=== PATIENT | male | born 1980 | race Caucasian/White ===

== ENCOUNTER 2020-03-06 03:42 | Emergency (ER) | payer SELFPAY ==
[2020-03-06 03:49] VITALS: BP 177/113; PULSE 75; RESP 16; TEMP 36.9; O2SAT 100; BMI 23.6
--- NOTE | 2020-03-06 03:57 | XRR_ITS ---
PROCEDURE INFORMATION: Exam: XR Left Wrist Exam date and time: 03/06/2020 4:26 AM Age: 39 years old Clinical indication: Pain; Wrist; Left TECHNIQUE: Imaging protocol: XR Left wrist. Views: 3 or more views. COMPARISON: No relevant prior studies available. FINDINGS: Bones/joints: No fracture or dislocation is seen. The joint spaces are preserved. An erosion is seen near the ulnar styloid. Soft tissues: Normal. XR/XR wrist LT min 3V* [id number] IMPRESSION: An erosion is seen near the ulnar styloid of uncertain etiology. Follow-up is suggested.
--- NOTE | 2020-03-06 03:57 | XRR_ITS ---
PROCEDURE INFORMATION: Exam: XR Left Hand Exam date and time: 03/06/2020 4:26 AM Age: 39 years old Clinical indication: Pain; Wrist; Left TECHNIQUE: Imaging protocol: XR Left hand. Views: 3 or more views. COMPARISON: No relevant prior studies available. FINDINGS: Bones/joints: An erosion is seen a near the ulnar styloid. Rest of the bones are unremarkable. The joint spaces are preserved. Negative for fracture. Soft tissues: Normal. XR/XR hand LT min 3V* 02800 IMPRESSION: An erosion is seen near the ulnar styloid. The etiology is not certain. Follow-up is suggested.
--- NOTE | 2020-03-06 04:39 | W.ED.EXTPRO ---
HPI - Extremity Problem General: Chief complaint: Extremity Problem,Nontraumatic Stated complaint: swollen left wrist Time Seen by Provider: 03/06/20 03:54 Source: patient Mode of arrival: ambulatory Limitations: no limitations History of Present Illness: HPI Narrative: Franco is a nice 39-year-old male who comes in complaining of left wrist pain. He states that pains been there for about 2 to 3 days. He does not specifically remember any injury. States the pain is chronic. It flares up from time to time. Patient thought he should have it checked out. Denies any fever, chills, nausea, vomiting or any other complaints. Review of Systems General: Reports: 10 or more systems reviewed and unremarkable except in HPI and below PFSH ED PFSH: Medical History (Updated 03/06/20 @ 05:55 by Rina Guajardo) No pertinent past medical history Physical Exam Extremity: NARRATIVE EXTREMITY EXAM: Left wrist without swelling or deformity. Neurovascular intact distal. Mild tenderness over the lateral aspect of the wrist. No other acute findings. Course Vital Signs: Vital signs: Vital Signs Temperature 98.4 F 03/06/20 03:49 Pulse Rate 67 03/06/20 05:33 Respiratory Rate 16 03/06/20 05:33 Blood Pressure 119/78 03/06/20 05:33 Pulse Oximetry 98 03/06/20 05:33 MDM - Extremity (Nontraumatic) MDM Narrative: Medical decision making narrative: Patient's x-rays are symmetrical. See no sign of infection. Patient has no erythema, swelling or tenderness that is significant on exam. I the patient use a cock-up splint and return if worse but at this time I see no evidence of anything further that would necessitate blood work or aspiration. Imaging Data^: XR Left Wrist: Attestation: I personally reviewed and interpreted this imaging study as follows: My impression: Notching versus focal erosion of the left distal ulnar styloid XR Left Hand: Attestation: I personally reviewed and interpreted this imaging study as follows: My impression: No acute findings. No fractures or dislocations. XR Right Wrist: Attestation: I personally reviewed and interpreted this imaging study as follows: My impression: Notching of distal ulnar styloid similar to other extremity Discharge Plan Discharge Patient Disposition: Home Clinical Impression: Acute wrist pain Qualifiers: Laterality: left Qualified Code(s): M25.532 - Pain in left wrist Condition: Stable Discharge Orders: Discharge ED (Routine); Ordered 03/06/20 Ordered By: Rina Guajardo Referrals: Johnson Cage DO [Physician] - 1-3 days Discharge Diet: Advance as tolerated Discharge Activity: Increase activity as tolerated Patient Instructions: Wrist Injury (ED), Arthralgia (ED) Activity Restrictions/Additional Instructions: Please return to the ER immediately for any of the signs or symptoms listed on your discharge instruction sheets, worsening/changing of your symptoms, you are not getting better as quickly as expected, or for ANY other cause or concerns. Use your splint as needed and if your pain persists follow-up with Dr. Cage for further evaluation and care. Take Tylenol and Motrin [id number] as needed for your pain. Coding Level of Care Code ED Soaping Department Supervisor for Lan Ohara
--- NOTE | 2020-03-06 05:07 | XRR_ITS ---
PROCEDURE INFORMATION: Exam: XR Right Wrist Exam date and time: 03/06/2020 5:08 AM Age: 39 years old Clinical indication: Abnormal findings; Abnormal imaging study of the limbs; Comparison view to the left wrist TECHNIQUE: Imaging protocol: XR Right wrist. Views: 3 or more views. COMPARISON: No relevant prior studies available. FINDINGS: Bones/joints: No acute fracture is seen. A tiny calcification is seen adjacent to the ulnar styloid. Soft tissues: Normal. XR/XR wrist RT min 3V* [id number] IMPRESSION: No acute findings.
[2020-03-06] MEDS: ibuprofen 200 mg Tablet 400 MG PO (05:32)
[2020-03-06 05:33] VITALS: BP 119/78; PULSE 67; RESP 16; O2SAT 98
== END 2020-03-06 05:35 | disposition home or self-care (01) ==
PROVIDERS: Emergency Provider Emergency Medicine
DX: M25.532 Pain in left wrist (principal)
CPT/HCPCS: 12345; 73110; 73130; 99281; 99283

== ENCOUNTER 2021-02-07 12:08 | Emergency (ER) | payer OTHER, SELFPAY ==
[2021-02-07 12:12] VITALS: PULSE 69; RESP 17; TEMP 37; O2SAT 97
--- NOTE | 2021-02-07 12:26 | ED_ITS ---
Documented by User: VERO Lomeli 02/07/21 14:49 HPI - Extremity Injury (Upper) General: Chief Complaint: Extremity Injury, Upper Stated Complaint: LEFT HAND INJURY W/C Time Seen by Provider: 02/07/21 12:17 Source: patient Mode of arrival: ambulatory Limitations: no limitations History of Present Illness: HPI narrative: Patient is a 40-year-old male who presents to ED today for evaluation of a left index finger injury. Patient states he sustained a crush injury to the finger while at work today. He does believe this is a workers comp injury. Patient is reporting pain to his left index proximal phalanx and PIP joint. He sustained a small laceration/abrasions. Last tetanus is unknown. MD complaint: injury to: left and finger Onset (ago): hour(s) Other Extremity Injury: Left: fingers Other injuries: none Place: work Severity: moderate Relieving factors: immobilization Exacerbating factors: movement of extremity Context: crush Associated symptoms: Reports no associated symptoms Review of Systems Musc: Reports: extremity pain (L index finger) and extremity swelling Skin/Breast: Reports: other (abrasions/laceration L index finger) Neuro: Denies: numbness in extremities or sensory changes [facility] ED PFSH: Medical History No pertinent past medical history Physical Exam Const: COMMON NORMALS: no acute distress, average body habitus, no limitations , healthy appearing, alert and well nourished Extremity: GENERAL: Yes normal exam except as noted LEFT UPPER EXTREMITY: Yes hand & digits OTHER: pt has swelling and tenderness to L index proximal phalanx and PIP joint; limited ROM to this joint secondary to pain/swelling; maintains normal ROM at MCP/DIP joints; sensory/cap refill normal; he has a very minor laceration (2mm) overlying dorsal proximal phalanx and a small abrasion to volar proximal phalanx none of which require repair Neuro: COMMON NORMALS: moves all extremities, no focal motor deficits and no sensory deficits noted SENSORIUM/ORIENTATION: Yes alert Skin: NARRATIVE SKIN EXAM: see extremity for pertinent skin findings Course Consultations: Consultation #1: Dr. Sorenson hand surgery-recommends abx, tetanus, static extension splint and her office will contact patient for follow up appointment Consultation #2: Dr. Abel-recommends hand surgery for plating Vital Signs: Vital signs: Vital Signs Temperature 98.6 F 02/07/21 12:12 Pulse Rate 69 02/07/21 15:37 Respiratory Rate 19 H 02/07/21 15:37 Blood Pressure 132/66 02/07/21 15:37 Pulse Oximetry 97 02/07/21 15:37 MDM - Extremity Injury (Upper) MDM Narrative: Medical decision making narrative: Patient has a very minor abrasion/laceration to the finger that was copiously irrigated. There is no closure indicated at this time. X-ray showing a midshaft proximal phalanx fracture to his left index finger that is fairly displaced. Spoke to our orthopedic provider material controller who recommended follow-up with hand surgery for plating. Spoke to Dr. Luong who stated their office will contact patient for follow-up appointment. X-ray images were uploaded to the cloud and patient was given x-ray disc. Patient was given IM Ancef and tetanus was updated. He will be placed on pain medications and oral antibiotics. Patient will be placed in a finger splint with the digit in extension (we unfortunately do not carry static extension splints). Return to ED precautions given. He will follow up with Worker's Comp as well. Imaging Data^: XR L finger: Radiologist's impression: [address] [id number] ReportSigned Patient: Franco Pickett #: [id number]: 1980Acct#:[id number]/Sex: 40 / MADM Date: 02/07/21Loc: ERRoom/Bed:Attending Dr: Ordering Provider/Ordering MD: Do Pandya Date of Service: 02/07/21 Procedure(s): XR finger LT min 2V [id number] Accession Number(s): [id number] Report Number: [id number] PROCEDURE INFORMATION: Exam: XR Left Finger(s) Exam date and time: 02/07/2021 12:25 PM Age: 40 years old Clinical indication: Injury or trauma; Other: Crushing; Left; Index finger; Additional info: Index; Trauma TECHNIQUE: Imaging protocol: XR Left fingers. Views: Minimum 2 views. COMPARISON: CR XR hand LT min 3V* [id number] 03/06/2020 4:13 AM FINDINGS: Bones/joints: There is an oblique transverse fracture of the 2nd proximal phalangeal diaphysis. The distal fracture fragment is displaced in a radial/lateral direction relative to the proximal fracture fragment, with palmar vertex angulation. No intra-articular extension. Degenerative changes are present in the wrist. Soft tissues: There is soft tissue swelling involving the proximal index finger. No soft tissue radiopaque foreign body. XR/XR finger LT min 2V [id number] IMPRESSION: 2nd proximal phalangeal fracture. Radiation Dose CTDIVOL = (mGy): DLP = (mGy-cm) Dictated By:Matt Joseph By:Matt Joseph Date/Time:02/07/21 1329DD/ 1225 Discharge Plan Discharge Patient Disposition: Home Clinical Impression: Fracture of proximal phalanx of left index finger Qualifiers: Encounter type: initial encounter Fracture type: closed Fracture alignment: displaced Qualified Code(s): S62.611A - Displaced fracture of proximal phalanx of left index finger, initial encounter for closed fracture Condition: Stable Prescriptions: New hydrocodone-acetaminophen 5-325 mg tablet 1 tab PO Q6H PRN (Reason: pain) Qty: 20 RF: 0 cephalexin 500 mg capsule 500 mg PO Q6H 7 Days Qty: 28 RF: 0 No Action ibuprofen 800 mg tablet 800 mg PO BID PRN (Reason: pain) 30 Days Qty: 60 RF: 0 quetiapine [Seroquel] 100 mg tablet 100 mg PO DAILY 30 Days Qty: 30 RF: 2 Discharge Orders: Discharge ED (Routine); Ordered 02/07/21 Ordered By: Do Pandya Patient Instructions: Finger Fracture (ED), Opioid Safety Activity Restrictions/Additional Instructions: [facility] is committed to fighting the nationwide opiate epidemic. We are providing ALL patients with information regarding opiate safety. If you received opiate pain medication during your stay or if you received a prescription for opiate pain medication-please review this handout. If not, you may disregard. Thank you. As we discussed I have spoken to Dr. Luong, hand surgeon at [facility] in [place]. Their office should be reaching out to you today or tomorrow to schedule a follow-up visit. If you have not heard from them please contact their office: [address] [place] [address] Please follow-up with Worker's Comp. as directed. You need to wear splint at all times until told otherwise by orthopedics. Begin antibiotics immediately. Monitor for signs of infection such as redness, swelling, drainage, streaking up your arm, fevers, or any other concerns you may have. Seek medical evaluation if these occur. Coding Level of Care Code ED Associate Civil Engineer for Chg Fwd Exam Expanded Problem Focused Documented by User: Choco Chin DO 02/13/21 15:36 HPI - Extremity Injury (Upper) General: Chief Complaint: Extremity Injury, Upper Stated Complaint: LEFT HAND INJURY W/C Time Seen by Provider: 02/07/21 12:17 PFSH ED PFSH: Medical History No pertinent past medical history Course Vital Signs: Vital signs: Vital Signs Temperature 98.6 F 02/07/21 12:12 Pulse Rate 69 02/07/21 15:37 Respiratory Rate 19 H 02/07/21 15:37 Blood Pressure 132/66 02/07/21 15:37 Pulse Oximetry 97 02/07/21 15:37 MDM - Extremity Injury (Upper) MDM Narrative: Medical decision making narrative: Chart reviewed and patient discussed with midlevel. Agree with assessment and plan. Discharge Plan Discharge Patient Disposition: Home Clinical Impression: Fracture of proximal phalanx of left index finger Qualifiers: Encounter type: initial encounter Fracture type: closed Fracture alignment: displaced Qualified Code(s): S62.611A - Displaced fracture of proximal phalanx of left index finger, initial encounter for closed fracture Condition: Stable Prescriptions: New hydrocodone-acetaminophen 5-325 mg tablet 1 tab PO Q6H PRN (Reason: pain) Qty: 20 RF: 0 cephalexin 500 mg capsule 500 mg PO Q6H 7 Days Qty: 28 RF: 0 No Action ibuprofen 800 mg tablet 800 mg PO BID PRN (Reason: pain) 30 Days Qty: 60 RF: 0 quetiapine [Seroquel] 100 mg tablet 100 mg PO DAILY 30 Days Qty: 30 RF: 2 Discharge Orders: Discharge ED (Routine); Ordered 02/07/21 Ordered By: Do Pandya Patient Instructions: Finger Fracture (ED), Opioid Safety Activity Restrictions/Additional Instructions: [facility] is committed to fighting the nationwide opiate epidemic. We are providing ALL patients with information regarding opiate safety. If you received opiate pain medication during your stay or if you received a prescription for opiate pain medication-please review this handout. If not, you may disregard. Thank you. As we discussed I have spoken to Dr. Luong, hand surgeon at [facility] in [place]. Their office should be reaching out to you today or tomorrow to schedule a follow-up visit. If you have not heard from them please contact their office: [address] [place] [address] Please follow-up with Worker's Comp. as directed. You need to wear splint at all times until told otherwise by orthopedics. Begin antibiotics immediately. Monitor for signs of infection such as redness, swelling, drainage, streaking up your arm, fevers, or any other concerns you may have. Seek medical evaluation if these occur. Coding Level of Care Code ED Associate Civil Engineer for Lan Ohara Exam Expanded Problem Focused
[2021-02-07] MEDS: tetanus-diphtheria tox (adult) 0.5 mL SDV IM (15:16)
[2021-02-07] MEDS: ceFAZolin 1,000 mg SDV 1000 MG IM (15:29)
[2021-02-07 15:37] VITALS: BP 132/66; PULSE 69; RESP 19; O2SAT 97
== END 2021-02-07 15:41 | disposition home or self-care (01) ==
PROVIDERS: Emergency Provider Physician Assistant
DX: S62.611A Displaced fracture of proximal phalanx of left index finger, initial encounter for closed fracture (principal); X58.XXXA Exposure to other specified factors, initial encounter; Y99.0 Civilian activity done for income or pay; Z23 Encounter for immunization
CPT/HCPCS: 73140; 90471; 90714; 96372; 99283; J0690

== ENCOUNTER 2021-07-17 06:00 | Outpatient (RCR) | payer OTHER, SELFPAY | END 2021-07-31 15:46 | disposition home or self-care (01) | LOC: AOT 06:00 | PROVIDERS: Referring Provider Specialist; Visit Provider Specialist | DX: S62.601D Fracture of unspecified phalanx of left index finger, subsequent encounter for fracture with routine healing (principal); X58.XXXD Exposure to other specified factors, subsequent encounter | CPT/HCPCS: 97110; 97140; 97166 ==

== ENCOUNTER 2022-01-11 09:47 | Emergency (ER) | payer SELFPAY ==
[2022-01-11 09:51] VITALS: BP 145/90; PULSE 76; RESP 16; TEMP 36.5; O2SAT 99; BMI 23.0
--- NOTE | 2022-01-11 10:06 | XRR_ITS ---
PROCEDURE INFORMATION: Exam: XR Left Wrist Exam date and time: 01/11/2022 10:12 AM Age: 41 years old Clinical indication: Left; Patient HX: History--lt wrist pain for 2 years TECHNIQUE: Imaging protocol: Radiologic exam of the Left wrist. Views: 1 or 2 views. COMPARISON: CR XR wrist LT min 3V* [id number] 03/06/2020 4:13 AM FINDINGS: Bones/joints: No acute fracture or malalignment. Severe radiocarpal degenerative changes. There may be some erosive changes in the carpus. Moderate degenerative changes of the STT and DRUJ joints. Mild 1st CMC joint degenerative changes. Osteopenia. Soft tissues: Normal. XR/XR wrist LT w scaphoid [id number] IMPRESSION: 1. No acute fracture or malalignment. 2. Severe radiocarpal degenerative changes with possible erosive changes in the carpus, which could be seen with an inflammatory arthropathy. Findings are progressed from 03/06/2020.
--- NOTE | 2022-01-11 10:36 | W.ED.EXTPRO ---
HPI - Extremity Problem General: Chief complaint: Extremity Problem,Nontraumatic Stated complaint: Left wrist pain Time Seen by Provider: 01/11/22 10:06 Source: patient Mode of arrival: ambulatory History of Present Illness: 41-year-old male complaining of weakness atrophy and pain in his left wrist and forearm. A year ago he had a left index finger fracture he has been seen by hand surgery and tells me he had a plate and screws placed they removed it fracture went on to nonunion. He has been seeing and getting x-rays nearly monthly for a year with a hand surgeon regarding this. He was advised they need to stop smoking before they could do any further procedures. He is also had left wrist pain which she identifies as a separate issue from the finger fracture. He was seen for this previously was referred to Ortho but evidently at the time this happened he was incarcerated and was unable to complete any follow-up has not followed up with this with a hand surgeon has been seeing her for the left index finger injury. He has noticed significant muscle atrophy and loss of function with the hand due to the 2 issues and comes in essentially for second opinion today. MD Complaint: extremity pain Onset (ago): year(s) Pain Consistency: constant Location: left and upper extremity (Wrist forearm and hand.) Radiation: none Relieving factors: nothing Exacerbating factors: nothing Associated symptoms: Reports arthralgias; Deny chest pain, fever(s), myalgias, rash or short of breath Review of Systems Const: Denies: fever(s), chills, fatigue or malaise ENMT: Denies: throat pain, ear or mastoid pain, nasal discharge or nasal congestion Card: Denies: chest pain Resp: Denies: dyspnea, productive cough or non-productive cough GI: Denies: abdominal pain, nausea, vomiting, hematemesis, coffee ground emesis, diarrhea, constipation, bloating, hematochezia or melena : Denies: flank pain, dysuria, urinary frequency or urinary urgency Musc: Reports: extremity pain and joint pain Skin/Breast: Denies: rash PFSH ED PFSH: Medical History No pertinent past medical history Social History (Updated 01/23/22 @ 08:23 by Choco Chin DO) Smoking and tobacco status: current every day smoker Physical Exam Const: COMMON NORMALS: no acute distress GENERAL APPEARANCE: cooperative and comfortable ORIENTATION/CONSCIOUSNESS: Yes awake, Yes oriented to person, Yes oriented to place and Yes oriented to time HENMT: COMMON NORMALS: normocephalic, atraumatic and hearing grossly normal bilaterally HEAD & SCALP: normocephalic and atraumatic Resp: COMMON NORMALS: normal respiratory effort, No retractions, No use of accessory muscles and clear to auscultation bilaterally AUSCULTATION: clear to auscultation bilaterally Cardio: COMMON NORMALS: regular rate, regular rhythm and No murmurs present (Cardio) RATE: regular rate RHYTHM: regular rhythm GI: COMMON NORMALS: Soft to palpation and No hepatosplenomegaly present AUSCULTATION: Yes normoactive bowel sounds PALPATION: Yes Soft to palpation, No Tenderness to palpation present (GI), No Guarding due to palpation present (GI) and Yes No hepatosplenomegaly present Extremity: OTHER: Obvious atrophy of the left forearm and wrist. Deformity of the left index finger from previous fracture. Neuro: SENSORIUM/ORIENTATION: Yes oriented to person, Yes oriented to place and Yes oriented to time Skin: COMMON NORMALS: no rashes or lesions noted GENERAL SKIN EXAM: no rashes or lesions noted Course Vital Signs: Vital signs: Vital Signs Temperature 97.7 F 01/11/22 11:04 Pulse Rate 76 01/11/22 11:04 Respiratory Rate 16 01/11/22 11:04 Blood Pressure 145/90 01/11/22 11:04 Pulse Oximetry 99 01/11/22 11:04 MDM - Extremity (Nontraumatic) Medical Decision Making There is still deformity of the left index finger we did not x-ray today he denies any recent trauma he is continue to follow with a hand surgeon at [place] recommend that he continues to that. He would like to see someone else for the rest which he identifies as a separate issue. Will make an appoint with him with Dr. Macario at the Ortho clinic here at [facility]. This all is chronic by history and x-ray findings are consistent with a chronic issue as well. He does not offer any recent trauma or particular injury. Ibuprofen or Aleve as needed. Medical Records I reviewed the patient's medical records. Lab Data I reviewed the patient's lab results. Radiology Impressions Wrist X-Ray 01/11/22 10:06 IMPRESSION: 1. No acute fracture or malalignment. 2. Severe radiocarpal degenerative changes with possible erosive changes in the carpus, which could be seen with an inflammatory arthropathy. Findings are progressed from 03/06/2020. Discharge Plan Discharge Patient Disposition: Home Clinical Impression: Chronic wrist pain Condition: Stable Prescriptions: New diclofenac sodium 75 mg tablet,delayed release (DR/EC) 75 mg PO Q12H PRN (Reason: pain) Qty: 20 0RF No Action ibuprofen 200 mg Tablet 600 mg PO Q6H PRN (Reason: Pain) Discharge Orders: Discharge ED (Routine); Ordered 01/11/22 Ordered By: Choco Chin Discharge Diet: Usual diet Discharge Activity: Resume usual activity Patient Instructions: Opioid Safety, Pain Management Activity Restrictions/Additional Instructions: This management make arrangements for follow-up with orthopedic surgeon regarding her wrist pain and abnormal findings on the x-ray today. Coding Level of Care Code ED Water Taxi Driver for Lan Ohara
[2022-01-11 11:04] VITALS: BP 145/90; PULSE 76; RESP 16; TEMP 36.5; O2SAT 99
--- NOTE | 2022-01-11 15:15 | DCPLANNER ---
Addendum entered by Lulu Fulton 02/20/22 13:42: This appointment was rescheduled Addendum entered by Lulu Fulton 01/31/22 14:20: Patient has a follow up appointment scheduled for Sunday, February 06, 2022 at 2:[address] Macario at ortho. Clinic will call patient with appointment information. Original Note: plant hr manager had message to schedule a follow up appointment for patient with ortho. plant hr manager sent patients information to the front office staff at ortho. Patients information will be printed and reviewed. Clinic will call patient with appointment information.
== END 2022-01-11 11:05 | disposition home or self-care (01) ==
PROVIDERS: Emergency Provider Family Medicine
DX: G89.29 Other chronic pain (principal); M25.532 Pain in left wrist; F17.210 Nicotine dependence, cigarettes, uncomplicated
CPT/HCPCS: 73110; 99283

== ENCOUNTER → 2022-02-13 10:40 | Outpatient (BNVA) | payer SELFPAY | PROVIDERS: Visit Provider Student in an Organized Health Care Education/Training Program | DX: S62.611K Displaced fracture of proximal phalanx of left index finger, subsequent encounter for fracture with nonunion (principal); W23.0XXD Caught, crushed, jammed, or pinched between moving objects, subsequent encounter; F17.200 Nicotine dependence, unspecified, uncomplicated | CPT/HCPCS: 73130 ==

== ENCOUNTER → 2023-03-26 10:55 | Outpatient (BNVA) | payer MEDICAID, SELFPAY | PROVIDERS: Visit Provider Student in an Organized Health Care Education/Training Program | DX: M79.645 Pain in left finger(s); M20.092 Other deformity of left finger(s); S62.611S Displaced fracture of proximal phalanx of left index finger, sequela; W23.0XXS Caught, crushed, jammed, or pinched between moving objects, sequela | CPT/HCPCS: 73130 ==

== ENCOUNTER 2023-04-17 08:27 | Day surgery (SDC) | payer MEDICAID, SELFPAY ==
[2023-04-17] VITALS (10 sets, daily range): BP systolic 113–151; BP diastolic 64–103; PULSE 60–73; RESP 9–22; TEMP 36.1–36.3; O2SAT 96–100; BMI 22.3
--- NOTE | 2023-04-17 08:51 | W.PM.OPSUD ---
Surgery/Procedure H&P Update DATE OF PROCEDURE: April 17, 2023 DATE H&P PERFORMED: 03/26/23 H&P UPDATE INFORMATION: I have reviewed H&P completed within last 30 days, I have examined patient prior to procedure and No changes to prior documentation CHANGES TO PREVIOUS DOCUMENTATION: Patient once again seen evaluated in the preoperative area. We once again reviewed all of his treatment options nonoperative and operative intervention we talked about roles of possible contracture releases as well as the role of a ray resection. 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 Understanding these risks with surgery as far as ins and outs procedure risk benefits complication alternatives of surgery elects proceed with a left index finger ray resection. All questions answered at this time. 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
[2023-04-17] MEDS: sodium chloride 0.9% 1,000 ML 30 ML IV (09:06)
[2023-04-17] MEDS: scopolamine 1.5 Patch 1 PATCH TRANSDERMA (09:08)
--- NOTE | 2023-04-17 09:12 | ANES.PREANE2 ---
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 Operation Date: 04/17/23 09:55 Proposed Procedures p Left Index Finger Ray Resection(Left) - Brad Macario DO Familial anesthetic complications: None Was Beta Yasmani taken within 24 hours: N/A Was Clonidine taken within 24 hours: N/A Last intake: Intake Last Liquid Date 04/16/23 Last Liquid Time 20:00 Last Solid Date 04/16/23 Last Solid Time 20:00 Social Tobacco and No alcohol Exam alert, oriented x 3, clear to auscultation bilaterally and regular rate & rhythm Airway Mallampati: Class II Dentition: other (missing) Anesthetic Plan ASA status: 2 Anesthesia: General Risk of > 500 ml blood loss (7ml/kg in children): No Medications/Allergies Home Medications Medication Instructions Recorded Confirmed Last Taken Type No Known Home Medications 03/06/22 04/16/23 Unknown History Allergies Allergy/AdvReac Type Severity Reaction Status Date / Time acetaminophen [From Percocet] Allergy ALGY-Redness Verified 04/17/23 08:41 of Skin oxycodone [From Percocet] Allergy ALGY-Redness Verified 04/17/23 08:41 of Skin Current Medications Generic Name Dose Route Start Last Admin Trade Name Freq PRN Reason Stop Dose Admin Sodium Chloride 1,000 mls @ 30 mls/hr 04/17/23 08:45 04/17/23 09:06 Sodium Chloride 0.9% IV 04/18/23 08:44 30 mls/hr .Q24H ELLEN Administration PFSH Anesthesia Medical History Tobacco abuse No pertinent past medical history Social History (Updated 03/26/23 @ 10:58 by Tuyet Acevedo LPN) Smoking and tobacco/nicotine status: current every day tobacco/nicotine user Alcohol intake: never Data Anesthesia Cardiac Studies: No Data to Display
[2023-04-17] MEDS: ceFAZolin 2,000 MG in sodium chloride 0.9% (plus) 50 ML 100 MG IV (09:14)
[2023-04-17] MEDS: ROPivacaine 0.5% SDV 30 mL 150 MG INJECTION (10:27)
[2023-04-17] MEDS: BUPivacaine 0.5% INJ 10 mL INJECTION (10:27)
--- NOTE | 2023-04-17 11:00 | PM.OP ---
Operative Report Date of procedure: April 17, 2023 Pre-op diagnosis: Left index finger delayed union proximal phalanx fracture with severe index finger joint contractures, Post-op diagnosis: Same Post-op findings: See operative report narrative Procedure done: Left index finger ray resection amputation Specimens removed/disposition: Amputated left index finger ray resection Surgeon: Brad Macario DO Ergonomics Consultant: Clarke Macario PA-C: PA was necessary for assistance in this case with hand positioning to execute the procedure, retraction and protection of neurovascular structures as well as to assist with wound closure and dressing application. Anesthesia: General and Local Estimated blood loss: 15mL 35min IV fluids: 700mL Complications: None Findings: See operative report Condition: stable Disposition: same day Brief History: Patient is a pleasant 42-year-old gentleman who had sustained a injury at work working at a [employer] patient subsequently had a proximal phalanx fracture this was roughly a couple years ago this was subsequently treated with plate fixation unfortunately patient went on to a nonunion and the hardware subsequently was removed and had issues with union. In the process he had developed significant joint contracture of the left index finger rendering this finger nonfunctional. Saw him roughly a year ago talked about treatment options of grafting to get this bone to heal however he still would likely have these fractures we talked about even the role of a ray resection he subsequently went back through his Workmen's Comp. and a year later was seen evaluated in my office for once again another evaluation and opinion. Really he had developed finally union of the proximal phalanx fracture but still had tenderness at this site but in the same token had significant contractures of the index finger leaving this when he makes a fist pointing straight as well as being away with any of his type work. As result we talked about his treatment options in detail we talked about saving this finger and the possibility of contracture releases and the details of therapy ultimately he would like to just get back as quick as possible as well as just to have the finger removed and out of the way as he is felt this is incompletely dysfunctional his current working state he works with this out having renal function. He like to just have it removed we talked about this in detail through shared decision making understanding the ins and outs procedure the risk benefits complication alternatives with surgery elects proceed with left index finger ray resection. He understands this and agrees with current plan. Questions answered. Procedure: Patient seen evaluated with medical holding area. Consent was reviewed and signed with patient correct digit was then subsequently marked. Once again detailed out the ins and outs procedure. He was seen eval by anesthesia once cleared for surgery was taken back to the operative suite kept on the hospital bed and subsequently armboard was applied to the left upper extremity. Left upper extremity was then nonsterile tourniquet applied to the left upper arm. Left upper arm was then prepped and draped in standard orthopedic fashion. Final timeout performed. Patient seen appropriate preoperative antibiotics. Esmarch tourniquet was used to exsanguinate the left upper extremity and tourniquet was insufflated to 250 mmHg. I subsequently performed a standard incision over the dorsal aspect in line with the second ray of the index finger and a circumferential tennis racquet incision around the index finger with the incision over the A1 mikal for plan for closure. Sharp scalpel incision was made just strictly through skin and subcutaneous tissue. Switched to Littler dissection scissors dissected out dorsally first at this point in time I subsequently mobilized the extensor tendons pulled these under direct tension verified the index finger extensor tendons and these were subsequently placed under traction and transected with scalpel excision. I then subsequently took sharp scalpel incision created full-thickness periosteal flaps for later closure of the interosseous space. I then identified roughly a 1-2 from the base of the CMC joint of the second metacarpal placed to blunt Homans around the base and utilizing a TPS oscillating microsagittal saw transected the base of the metacarpal. Towel clip was then grasped and this was dissected and skeletonized utilizing scalpel excision and excised at the MP joint and removed. Next I then made incision directly through the intermetacarpal ligaments. Next I then carried my dissection volarly. Sharp scalpel incision was made through skin and switched dissection scissors to identify the digital neurovascular bundles. The neurovascular bundles were then appropriately coagulated the digital arteries and then the digital nerves were then placed under traction and excised with sharp scalpel excision I then subsequently dissected these out with some length in order to carry these within the interosseous muscle bellies. Once these were appropriately dissected I then utilized sharp scalpel excision to excise the rest of the index finger and this was subsequently removed to its entirety.. At this point in time I then subsequently performed thoroughly irrigation of the entire wound bed removing all bony debris. I then subsequently let down the tourniquet maintain exact hemostasis with bipolar electrocautery. Once satisfied with this I then subsequently reinsufflated the tourniquet for its final closure which was let down at the end of the case once dressing was on. I took the dissected out digital nerves and curved these and embedded them within the muscle bellies of the interosseous muscles. At this point in time I used 0 Vicryl to close intermetacarpal ligament to close down the space. Then next I utilized a running 2-0 Vicryl stitch to close up the periosteum and then subsequently closed the incision with interrupted nylon suture. Xeroform 4 x 4's ABD Curlex a volar splint and an Jose wrap was then applied. Patient was then awake from anesthesia and taken back in stable condition. Disposition: Patient taken to PACU in stable condition recovering well received appropriate discharge structure as well as pain medication postoperatively. Will get patient into our OT hand therapy for recovery. Patient follow-up in the orthopedic office in 2 weeks. Patient understands and agrees with current plan. Questions answered.
--- NOTE | 2023-04-17 11:03 | W.PM.BPON ---
Date of Procedure: [April 17, 2023] Surgeon: [Dr. Renaldo DO] Stacker Straightener(s): [Clarke Macario PA-C] Procedure(s) performed: [Left Index Finger Ray Resection(Left)] Findings of the procedure(s): [Left index finger MP PIP and DIP joint contractures with a delayed union proximal phalanx fracture] Estimated blood loss: [15 ml] Specimen(s) removed: [Left index finger and left index finger Metacarpal] Post-operative diagnosis: [Left index finger MP PIP and DIP joint contractures with a delayed union proximal phalanx fracture]
--- NOTE | 2023-04-17 11:08 | P.PCN_ITS ---
PACU note Narrative: Patient is a 42-year-old male just underwent a left index finger ray resection. Patient transferred to PACU in stable condition. Pain is well controlled. Dressing and splint on dry and in place. Patient's fingers are warm and well- perfused. Patient is somnolescent arousable. Unable to perform any further assessment due to residual anesthetic. Exam: somnolent, arousable Disposition: discharged
[2023-04-17] MEDS: HYDROcodone-acetaminophen 7.5-325 mg Tablet 1 TAB PO (12:15)
--- NOTE | 2023-04-17 12:20 | ANE.PACU2 ---
Inpatient post-anesthesia follow up: Airway intact: Yes Vital signs: Temperature 97.1 F Pulse Rate 63 Respiratory Rate 17 Blood Pressure 142/97 Pulse Oximetry 100 Oxygen Delivery Me thod Room Air Oxygen Flow Rate 6 Fraction of Inspir ed Oxygen Hydration adequate: Yes Nausea and vomiting: No Pain level: 1 Mental status: Baseline
== END 2023-04-17 12:22 | disposition home or self-care (01) ==
PROVIDERS: PCP Family Medicine; Visit Provider Student in an Organized Health Care Education/Training Program
PROC: (CPT 26910; principal; 2023-04-17 09:50)
DX: S62.611K Displaced fracture of proximal phalanx of left index finger, subsequent encounter for fracture with nonunion (principal); W23.0XXD Caught, crushed, jammed, or pinched between moving objects, subsequent encounter; M20.092 Other deformity of left finger(s); F17.210 Nicotine dependence, cigarettes, uncomplicated
CPT/HCPCS: 26910; 88305; 88311; J0690; J1100; J2250; J2405; J2704; J2795; J3010; J3490; J7030

== ENCOUNTER 2023-04-30 13:56 | Outpatient (RCR) | payer MEDICAID, SELFPAY | END 2023-05-09 23:59 | disposition home or self-care (01) | LOC: SOT 13:56 | PROVIDERS: PCP Family Medicine; Visit Provider Student in an Organized Health Care Education/Training Program | DX: Z47.89 Encounter for other orthopedic aftercare (principal) | CPT/HCPCS: 97110; 97165 ==

== ENCOUNTER 2024-07-10 00:37 | Emergency (ER) | payer MEDICAID, SELFPAY ==
[2024-07-10 00:38] VITALS: BP 140/91; PULSE 81; RESP 18; TEMP 36.6; O2SAT 95; BMI 22.3
--- NOTE | 2024-07-10 00:41 | CTR_ITS ---
PROCEDURE INFORMATION: Exam: CT Head Without Contrast Exam date and time: 07/10/2024 1:14 AM Age: 43 years old Clinical indication: Syncope and collapse TECHNIQUE: Imaging protocol: Computed tomography of the head without contrast. Radiation optimization: All CT scans at this facility use at least one of these dose optimization techniques: automated exposure control; mA and/or kV adjustment per patient size (includes targeted exams where dose is matched to clinical indication); or iterative reconstruction. COMPARISON: No relevant prior studies available. RADIATION DOSE METRICS: Total DLP (mGy-cm): 1282.08 FINDINGS: Brain: Normal. No hemorrhage. Unremarkable white matter. No mass effect. Cerebral ventricles: No ventriculomegaly. Paranasal sinuses: Visualized sinuses are unremarkable. No fluid levels. Mastoid air cells: Visualized mastoid air cells are well aerated. Bones: Unremarkable. No acute fracture. Soft tissues: Unremarkable. CT/CT head wo con* [id number] IMPRESSION: No acute intracranial abnormality.
--- NOTE | 2024-07-10 00:41 | XRR_ITS ---
PROCEDURE INFORMATION: Exam: XR Right Shoulder Exam date and time: 07/10/2024 1:08 AM Age: 43 years old Clinical indication: Pain and injury or trauma; Fall; Blunt trauma (contusions or hematomas); Shoulder; Right; Additional info: Fall, pain TECHNIQUE: Imaging protocol: Radiologic exam of the right shoulder. Views: 2 or more views. COMPARISON: CR (CHEST, ) 07/10/2024 1:06 AM FINDINGS: Bones/joints: Normal. Soft tissues: Normal. XR/XR shoulder RT min 2V* [id number] IMPRESSION: No acute findings.
--- NOTE | 2024-07-10 00:41 | XRR_ITS ---
PROCEDURE INFORMATION: Exam: XR Chest Exam date and time: 07/10/2024 1:06 AM Age: 43 years old Clinical indication: Other: Syncope TECHNIQUE: Imaging protocol: Radiologic exam of the chest. Views: 1 view. COMPARISON: CR XR shoulder LT min 2V* [id number] 02/12/2018 1:23 PM FINDINGS: Lungs: Unremarkable. No consolidation. Pleural spaces: Unremarkable. No pleural effusion. No pneumothorax. Heart/Mediastinum: Unremarkable. No cardiomegaly. Bones/joints: Unremarkable. XR/XR chest 1V portable [id number] IMPRESSION: No acute findings.
--- NOTE | 2024-07-10 00:44 | ECG_ITS ---
[facility] Test Date: 2024-07-10 Pat Name: Franco Pickett Department: Room: Gender: Male Audit Manager: : 1980 Requested By: Whit Silva Order Number: [id number] Oakley MD: Ravi Contreras M.D. Measurements Intervals [place] Rate: 77 P: 85 MA: 169 QRS: 83 QRSD: 99 T: 67 QT: 360 QTc: 409 Interpretive Statements SINUS RHYTHM No previous ECG available for comparison Electronically Signed On 07-13-2024 09:27:37 CDT by Ravi Contreras M.D. [email or web address] [id number]
--- NOTE | 2024-07-10 00:45 | W.ED.EXTPRO ---
HPI - Extremity Problem General: Chief complaint: Extremity Injury, Upper Stated complaint: Dizzy, AMS Time Seen by Provider: 07/10/24 00:39 History of Present Illness: 43-year-old man who presents emergency room after having a syncopal episode. Apparently was in the bathroom and stood up and had an episode where he passed out and seemed somewhat confused afterwards. He says he does not remember anything. He says he was feeling fine before and he feels okay now other than some pain in his right shoulder. No shortness of breath. No altered mental status at this point. No focal motor deficits. No chest pain. No abdominal pain. Related Data Previous Rx's ?Medication ?Instructions ?Recorded hydrocodone 7.5 mg-acetaminophen 1 tab PO Q6H PRN pain 5 days #20 04/30/23 325 mg tablet tabs Allergies Allergy/AdvReac Type Severity Reaction Status Date / Time acetaminophen (From Percocet) Allergy ALGY-Redness Verified 07/10/24 00:43 of Skin oxycodone (From Percocet) Allergy ALGY-Redness Verified 07/10/24 00:43 of Skin Review of Systems Narrative: Constitutional symptoms: Negative except as documented in HPI. Skin symptoms: Negative except as documented in HPI. Eye symptoms: Negative except as documented in HPI. ENMT symptoms: Negative except as documented in HPI. Respiratory symptoms: Negative except as documented in HPI. Cardiovascular symptoms: Negative except as documented in HPI. Gastrointestinal symptoms: Negative except as documented in HPI. Genitourinary symptoms: Negative except as documented in HPI. Musculoskeletal symptoms: Negative except as documented in HPI. Neurologic symptoms: Negative except as documented in HPI. Psychiatric symptoms: Negative except as documented in HPI. Endocrine symptoms: Negative except as documented in HPI. [facility] ED PFSH: Medical History Tobacco abuse No pertinent past medical history Social History Smoking and tobacco/nicotine status: current every day tobacco/nicotine user Alcohol intake: never Physical Exam Narrative: EXAM NARRATIVE: General: Alert, no acute distress. Skin: Warm, dry. Head: Normocephalic, atraumatic. Neck: Supple, trachea midline. Eye: Extraocular movements are intact. Ears, nose, mouth and throat: mucosa moist. Cardiovascular: Regular, Normal peripheral perfusion. Respiratory: Lungs are clear to auscultation, respirations are non-labored, breath sounds are equal, Symmetrical chest wall expansion. Gastrointestinal: Soft, Nontender, Non distended Musculoskeletal: Some limitation of range of motion of the right shoulder but no obvious deformity. Neurological: Alert and oriented, No focal neurological deficit observed. Psychiatric: Cooperative, appropriate mood & affect. Course Vital Signs: Vital signs: Vital Signs Temperature 97.9 F 07/10/24 00:38 Pulse Rate 81 07/10/24 00:38 Respiratory Rate 18 07/10/24 00:38 Blood Pressure 140/91 07/10/24 00:38 Pulse Oximetry 95 07/10/24 00:38 Oxygen Delivery Me thod Room Air 07/10/24 00:38 MDM - Extremity (Nontraumatic) Medical Decision Making Medical decision making: Differential diagnosis including but not limited to and based on the above HPI, review of systems and physical exam in this patient with syncope: Vasovagal, orthostatics hypotension, cardiac dysrhythmia, myocardial infarction, infection and hypotension, Orders placed to evaluate differential diagnosis based on the above differential, HPI and physical exam CT head: No acute intracranial process. no intracranial hemorrhage, no evidence of infarct. no evidence of acute fracture.This was reviewed and interpreted by myself the ER physician. Chest x-ray: No acute process. No infiltrate. No pneumothorax. This was reviewed and interpreted by myself the emergency room physician. I also reviewed the radiology report. X-ray of the right shoulder: No fractures or dislocations. This was reviewed and interpreted by myself the emergency room physician. I also reviewed the radiology report. Lab Review: Laboratory results were reviewed and interpreted by myself the emergency room physician. No leukocytosis. No anemia. Mean and creatinine are slightly elevated at 21 and 1.3 which might indicate some dehydration. 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 I discussed that he should make sure he stays better hydrated as sounds like maybe he had a syncopal episode that might of been orthostatic and then some seizure-like activity. He says he does have a history of seizures but it has been a long time since he is had 1. I reviewed the patient's medical record. Reexamination: Patient remained stable. No increased work of breathing. No altered mental status. No focal motor deficits. Assessment and plan: Syncope Possible seizure Dehydration - Discharged home - Discussed plan with patient. Answered any questions. - Evaluation and treatment of this problem were appropriate in the emergency setting. Lab Data 07/10/24 00:57 07/10/24 00:57 Radiology Impressions Chest X-Ray 07/10/24 00:41 IMPRESSION: No acute findings. Head CT 07/10/24 00:41 IMPRESSION: No acute intracranial abnormality. Shoulder X-Ray 07/10/24 00:41 IMPRESSION: No acute findings. Laboratory Results WBC 9.20 10^3/uL (3.29-11.43) 07/10/24 00:57 RBC 4.81 10^6/uL (3.85-5.65) 07/10/24 00:57 Hgb 14.00 g/dL (11.27-16.99) 07/10/24 00:57 Hct 42.1 % (37-53) 07/10/24 00:57 MCV 87.5 fl (82-101) 07/10/24 00:57 MCH 29.1 pg (27-33) 07/10/24 00:57 MCHC 33.3 g/dL (30-55) 07/10/24 00:57 RDW 11.6 % (12.1-15.1) L 07/10/24 00:57 Plt Count 233 10^3/cmm (157-399) 07/10/24 00:57 MPV 9.3 fL (7.4-10.4) 07/10/24 00:57 Neut % (Auto) 81.8 % 07/10/24 00:57 Lymph % (Auto) 10.9 % 07/10/24 00:57 [place] % (Auto) 5.1 % 07/10/24 00:57 Eos % (Auto) 1.0 % 07/10/24 00:57 Baso % (Auto) 0.9 % 07/10/24 00:57 Neut # (Auto) 7.53 10^3/uL (1.8-7.7) 07/10/24 00:57 Lymph # (Auto) 1.0 10^3/uL (0.8-4.8) 07/10/24 00:57 [place] # (Auto) 0.5 10^3/uL (0.2-0.9) 07/10/24 00:57 Eos # (Auto) 0.1 10^3/uL (0.0-0.8) 07/10/24 00:57 Baso # (Auto) 0.1 10^3/uL (0.0-0.1) 07/10/24 00:57 Nucleated RBC % (auto) 0 % 07/10/24 00:57 Nucleated RBCs # 0.0 /100WBC 07/10/24 00:57 Sodium 137 mmol/L (136-145) 07/10/24 00:57 Potassium 4.7 mmol/L (3.5-5.1) 07/10/24 00:57 Chloride 102 mmol/L (98-107) 07/10/24 00:57 Carbon Dioxide 25 mmol/L (22-29) 07/10/24 00:57 Anion Gap 14.7 (5-19) 07/10/24 00:57 BUN 21 mg/dL (6-20) H 07/10/24 00:57 Creatinine 1.3 mg/dL (0.7-1.2) H 07/10/24 00:57 GFR Calculation 59.7 mL/min (90-130) L 07/10/24 00:57 Glucose 121 mg/dL (65-115) H 07/10/24 00:57 Calculated Osmolality 288 mOsm/kg (285-295) 07/10/24 00:57 Lactic Acid 1.0 mmol/L (0.5-2.2) 07/10/24 00:57 Calcium 8.9 mg/dL (8.5-10.5) 07/10/24 00:57 Total Bilirubin 0.2 mg/dL (0.15-1.2) 07/10/24 00:57 AST 21 U/L (0-40) 07/10/24 00:57 ALT 13 U/L (0-41) 07/10/24 00:57 Alkaline Phosphatase 65 U/L (40-130) 07/10/24 00:57 Troponin T Baseline 9 ng/L (0-15) 07/10/24 00:57 Total Protein 7.3 g/dL (6.6-8.7) 07/10/24 00:57 Albumin 4.3 g/dL (3.5-5.2) 07/10/24 00:57 Globulin 3.0 g/dL (1.3-4.6) 07/10/24 00:57 All radiology interpretation(s) finalized by discharge Discharge Plan Discharge Patient Disposition: Home Clinical Impression: Syncope, Seizure Condition: Stable Prescriptions: No Action hydrocodone-acetaminophen 7.5-325 mg tablet 1 tab PO Q6H PRN (Reason: pain) 5 Days Qty: 20 0RF Discharge Orders: Discharge ED (Routine); Ordered 07/10/24 Ordered By: Whit Moctezuma Referrals: Gee Deluca MD [Primary Care Provider, Family Practice] Discharge Diet: Usual diet Discharge Activity: Increase activity as tolerated Patient Instructions: Syncope (ED), Opioid Safety, Pain Management Activity Restrictions/Additional Instructions: Thank you for choosing [facility] for your healthcare needs today. You have been screened and evaluated and felt safe for discharge. Health conditions do change or evolve sometimes and as such it is important that you follow up with your Primary Doctor to be re checked, 3-5 days is a general good time frame for follow up. You are always welcome to return to the ED for re assessment if your symptoms are worsening or you have new concerns Print Language: Amharic Coding Level of Care Code ED Web Marketing Specialist for [facility] Ohara
[2024-07-10 01:01] LABS: Basophils # 0.1 10^3/uL (0.0-0.1); Basophils % 0.9 %; Eosinophils # 0.1 10^3/uL (0.0-0.8); Hematocrit 42.1 % (37-53); Lymphocytes % 10.9 %; Mean Corpuscular HGB Conc 33.3 g/dL (30-55); Mean Corpuscular Hemoglobin 29.1 pg (27-33); Mean Corpuscular Volume 87.5 fl (82-101); Mean Platelet Volume 9.3 fL (7.4-10.4); Monocytes # 0.5 10^3/uL (0.2-0.9); Monocytes % 5.1 %; Neutrophils # 7.53 10^3/uL (1.8-7.7); Neutrophils % 81.8 %; Nucleated Red Blood Cells % 0 %; Platelet Count 233 10^3/cmm (157-399); Red Blood Count 4.81 10^6/uL (3.85-5.65); Red Cell Distribution Width 11.6 % (12.1-15.1)
[2024-07-10 01:21] LABS: Alanine Aminotransferase 13 U/L (0-41); Albumin Level 4.3 g/dL (3.5-5.2); Alkaline Phosphatase 65 U/L (40-130); Anion Gap 14.7 (5-19); Aspartate Amino Transferase 21 U/L (0-40); Blood Urea Nitrogen 21 mg/dL (6-20); Calcium 8.9 mg/dL (8.5-10.5); Carbon Dioxide 25 mmol/L (22-29); Chloride 102 mmol/L (98-107); Glomerular Filtration Rate 59.7 mL/min (90-130); Glucose 121 mg/dL (65-115); Osmolality Calculated 288 mOsm/kg (285-295); Potassium 4.7 mmol/L (3.5-5.1); Sodium 137 mmol/L (136-145); Total Bilirubin 0.2 mg/dL (0.15-1.2); Total Protein 7.3 g/dL (6.6-8.7)
[2024-07-10 01:22] LABS: Troponin(5th) Baseline 9 ng/L (0-15)
[2024-07-10 02:13] VITALS: BP 140/89; PULSE 69; RESP 20; O2SAT 100
== END 2024-07-10 02:13 | disposition home or self-care (01) ==
PROVIDERS: Emergency Provider Emergency Medicine; PCP Family Medicine
DX: R55 Syncope and collapse (principal); R56.9 Unspecified convulsions; Z72.0 Tobacco use
CPT/HCPCS: 70450; 71045; 73030; 80053; 83605; 84484; 85025; 93005; 99285

== ENCOUNTER 2024-07-10 04:45 | Emergency (ER) | payer MEDICAID, SELFPAY ==
[2024-07-10 04:46] VITALS: BP 169/103; PULSE 80; RESP 18; TEMP 37.2; O2SAT 96; BMI 23.7
--- NOTE | 2024-07-10 04:52 | XRR_ITS ---
PROCEDURE INFORMATION: Exam: XR Left Shoulder Exam date and time: 07/10/2024 5:18 AM Age: 43 years old Clinical indication: Injury or trauma; Fall; Blunt trauma (contusions or hematomas); Shoulder; Left; Additional info: Fall, pain TECHNIQUE: Imaging protocol: Radiologic exam of the left shoulder. Views: 2 or more views. COMPARISON: CR XR shoulder LT min 2V* [id number] 02/12/2018 1:23 PM FINDINGS: Bones/joints: Large impaction fracture of the medial humeral head, age indeterminate but likely chronic. Dislocation can not be excluded. Recommend axillary view. Soft tissues: See Bones/joints finding. XR/XR shoulder LT min 2V* [id number] IMPRESSION: 1. Large impaction fracture of the medial humeral head, age indeterminate but likely chronic. 2. Dislocation can not be excluded. Recommend axillary view.
[2024-07-10] MEDS: sodium chloride 0.9% 1,000 ML 999 ML IV (04:58)
[2024-07-10] MEDS: levETIRAcetam 1,000 MG/100 ML PREMIX 400 MG IV (04:58)
--- NOTE | 2024-07-10 05:09 | ED_ITS ---
HPI - Seizure General: Chief Complaint: Seizure Stated Complaint: Seizure Time Seen by Provider: 07/10/24 04:52 History of Present Illness: HPI Narrative: 43-year-old man with a history of remote seizures is never been on medication for it who presents emergency room for second time the night. Earlier tonight he had a possible syncopal episode with some seizure-like activity. Workup was extensive and negative. He gone home. Apparently he had another seizure at home that lasted about 60 seconds and he was little bit postictal afterwards. He is complaining of some left shoulder pain. He arrives by ambulance. Related Data Previous Rx's ?Medication ?Instructions ?Recorded hydrocodone 7.5 mg-acetaminophen 1 tab PO Q6H PRN pain 5 days #20 04/30/23 325 mg tablet tabs hydrocodone 5 mg-acetaminophen 325 1 tab PO Q6H PRN pa in #20 tabs 07/10/24 mg tablet levetiracetam 500 mg tablet 500 mg PO BID 2 weeks #28 tabs 07/10/24 (Keppra) Allergies Allergy/AdvReac Type Severity Reaction Status Date / Time acetaminophen (From Percocet) Allergy ALGY-Redness Verified 07/10/24 00:43 of Skin oxycodone (From Percocet) Allergy ALGY-Redness Verified 07/10/24 00:43 of Skin Review of Systems Narrative: Constitutional symptoms: Negative except as documented in HPI. Skin symptoms: Negative except as documented in HPI. Eye symptoms: Negative except as documented in HPI. ENMT symptoms: Negative except as documented in HPI. Respiratory symptoms: Negative except as documented in HPI. Cardiovascular symptoms: Negative except as documented in HPI. Gastrointestinal symptoms: Negative except as documented in HPI. Genitourinary symptoms: Negative except as documented in HPI. Musculoskeletal symptoms: Negative except as documented in HPI. Neurologic symptoms: Negative except as documented in HPI. Psychiatric symptoms: Negative except as documented in HPI. Endocrine symptoms: Negative except as documented in HPI. PFSH ED PFSH: Medical History Tobacco abuse No pertinent past medical history Social History Smoking and tobacco/nicotine status: current every day tobacco/nicotine user Alcohol intake: never Physical Exam Narrative: EXAM NARRATIVE: General: Alert, no acute distress. Skin: Warm, dry. Head: Normocephalic, atraumatic. Neck: Supple, trachea midline. Eye: Extraocular movements are intact. Ears, nose, mouth and throat: mucosa moist. Cardiovascular: Regular, Normal peripheral perfusion. Respiratory: Lungs are clear to auscultation, respirations are non-labored, breath sounds are equal, Symmetrical chest wall expansion. Gastrointestinal: Soft, Nontender, Non distended Musculoskeletal: Pain in left shoulder. Neurological: Alert and oriented, No focal neurological deficit observed. Psychiatric: Cooperative, appropriate mood & affect. Course Vital Signs: Vital signs: Vital Signs Temperature 98.9 F 07/10/24 04:46 Pulse Rate 76 07/10/24 05:29 Respiratory Rate 19 H 07/10/24 05:29 Blood Pressure 169/103 07/10/24 04:46 Pulse Oximetry 99 07/10/24 05:29 Oxygen Delivery Me thod Room Air 07/10/24 04:46 MDM - Seizure MDM Narrative Medical decision making narrative: Medical decision making: Differential diagnosis for this patient with a complaint of seizure like activity would include but not be limited to, and based on the above HPI, review of systems and physical exam: seizure, DT's, alcohol withdrawal, brain malignancy, pseudo-seizure, syncope. Orders placed to evaluate differential diagnosis based on the above differential, HPI and physical exam Lab Review: Laboratory results were reviewed and interpreted by myself the emergency room physician ABG shows no acidosis X-ray of the left shoulder shows no acute fractures. I reviewed the patient's medical record. Reexamination: Patient remained stable. No increased work of breathing. No altered mental status. No focal motor deficits. Assessment and plan: Seizure, recurrent Left shoulder injury ? Mcdonough and IV Keppra in the emergency room - Discharged home - Discussed plan with patient. Answered any questions. - Evaluation and treatment of this problem were appropriate in the emergency setting. Lab Data Labs: Laboratory Results Specimen Type Arterial 07/10/24 05:11 Sample Site Radial, right 07/10/24 05:11 ABG pH 7.39 (7.35-7.45) 07/10/24 05:11 ABG pCO2 36.7 mmHg (35-45) 07/10/24 05:11 ABG pO2 78.8 mmHg (80.0-100.0) L 07/10/24 05:11 ABG HCO3 22.1 mmol/L (22-26) 07/10/24 05:11 ABG O2 Saturation 96.1 07/10/24 05:11 ABG Base Excess -2.4 mmol/L (-2.0-2.0) L 07/10/24 05:11 Frantz Test Pos 07/10/24 05:11 A-a O2 Gradient 3.1 mmHg (5-10) L 07/10/24 05:11 Hematocrit 40.8 % (42-52) L 07/10/24 05:11 Hgb O2 Saturation 93.5 % (95-100) L 07/10/24 05:11 Carboxyhemoglobin 1.5 %THgb (0.4-20.1) 07/10/24 05:11 Methemoglobin 1.2 % (0.4-1.5) 07/10/24 05:11 Total Hemoglobin 13.3 g/dL (14-18) L 07/10/24 05:11 Sodium 139.0 mmol/L (131-143) 07/10/24 05:11 Potassium 3.8 mmol/L (3.5-5.0) 07/10/24 05:11 Glucose 118.0 mg/dL (70-115) H 07/10/24 05:11 Ionized Calcium 1.1 mmol/L (1.1-1.4) 07/10/24 05:11 O2 Delivery Device Room air 07/10/24 05:11 Photovoltaic Testing Technician ID [email or web address] 07/10/24 05:11 All radiology interpretation(s) finalized by discharge Discharge Plan Discharge Patient Disposition: Home Clinical Impression: Seizure Condition: Stable Prescriptions: New levetiracetam [Keppra] 500 mg tablet 500 mg PO BID 14 Days Qty: 28 0RF hydrocodone-acetaminophen 5-325 mg tablet 1 tab PO Q6H PRN (Reason: pain) Qty: 20 0RF No Action hydrocodone-acetaminophen 7.5-325 mg tablet 1 tab PO Q6H PRN (Reason: pain) 5 Days Qty: 20 0RF Discharge Orders: Discharge ED (Routine); Ordered 07/10/24 Ordered By: Whit Moctezuma Referrals: Kanika Ashley MD [Physician, Neurology] - 2 weeks Referral Note: please call for an appointment. Gee Deluca MD [Primary Care Provider, Family Practice] Brent Ro MD [Physician, Orthopedics] - 4-7 days Referral Note: call if shoulder pain persists Discharge Diet: As Directed Discharge Activity: Limit activity as instructed Patient Instructions: Recurrent Seizures in Adults (ED), Opioid Safety, Pain Management Activity Restrictions/Additional Instructions: No driving until cleared by your primary care provider or a neurologist. Thank you for choosing [facility] for your healthcare needs today. You have been screened and evaluated and felt safe for discharge. Health conditions do change or evolve sometimes and as such it is important that you follow up with your Primary Doctor to be re checked, 3-5 days is a general good time frame for follow up. You are always welcome to return to the ED for re assessment if your symptoms are worsening or you have new concerns Print Language: Sri Lankan Coding Level of Care Code ED Photolithographic Stripper for Lan Ohara
[2024-07-10 05:22] LABS: ABG PCO2 36.7 mmHg (35-45); ABG PH Result 7.39 (7.35-7.45); Alveolar-Arterial Oxygen Gradi 3.1 mmHg (5-10); Arterial Blood Gas Hematocrit 40.8 % (42-52); Base Excess ABG -2.4 mmol/L (-2.0-2.0); Blood Gas Allen Test Pos; Blood Gas Sample Site Radial, right; Blood Gas Sample Type Arterial; Carboxyhemoglobin 1.5 %THgb (0.4-20.1); HCO3 ABG 22.1 mmol/L (22-26); HGB O2 Sat 93.5 % (95-100); Ionized Calcium Level - ABG 1.1 mmol/L (1.1-1.4); Methemoglobin 1.2 % (0.4-1.5); Oxygen Device ROOM AIR; Oxygen Saturation ABG 96.1; PO2 ABG 78.8 mmHg (80.0-100.0); Potassium Level - ABG 3.8 mmol/L (3.5-5.0); Total Hemoglobin 13.3 g/dL (14-18)
[2024-07-10 05:29] VITALS: PULSE 76; RESP 19; O2SAT 99
[2024-07-10] MEDS: HYDROcodone-acetaminophen 10-325 mg Tablet 1 TAB PO (05:42)
[2024-07-10 05:48] VITALS: BP 166/119; PULSE 59; O2SAT 99
== END 2024-07-10 05:49 | disposition home or self-care (01) ==
PROVIDERS: Emergency Provider Emergency Medicine; PCP Family Medicine
DX: R56.9 Unspecified convulsions (principal); Z72.0 Tobacco use
CPT/HCPCS: 36600; 73030; 80051; 82330; 82805; 96374; 99284; J1953; J7030; J9999

== ENCOUNTER 2024-07-20 09:14 | Outpatient (CLI) | payer MEDICAID, SELFPAY ==
--- NOTE | 2024-07-20 09:30 | MR_ITS ---
WS: [id number] MRI HEAD WITH CONTRAST TECHNIQUE: Sagittal T1, T2 axial, T2 axial FLAIR, axial susceptibility weighted imaging, axial diffusion weighted images, and coronal T2 images were obtained. Pre and post-T1 axial and post T1 coronal images. ADC and FSPGR images. CLINICAL INFORMATION: G40.209 - Localization-related (focal) (partial) symptoma... COMPARISON: CT 07/10/2024 FINDINGS: No evidence of restricted diffusion to suggest acute ischemia. Moderate parenchymal volume loss. No suspicious intracranial signal abnormalities. Normal posterior fossa. Normal vascular flow voids at the skull base. No extra-axial fluid collections. Paranasal sinuses and mastoid air cells are well aerated. Normal posterior nasopharynx. No hemosiderin on the susceptibility weighted images. Normal optic chiasm and pituitary infundibulum. Temporal lobes and hippocampal formations are normal in appearance. No signal abnormalities in the mesial temporal lobes. No abnormal gadolinium enhancement. Enhancing RIGHT nasal cavity polypoid lesion extending into the RIGHT posterior nasopharynx. RIGHT recommend direct visualization. MR/MR head wo/w con [id number] IMPRESSION: 1. No evidence of restricted diffusion to suggest acute ischemia. 2. No suspicious intracranial signal abnormalities. Moderate parenchymal volum e loss. 3. No hemosiderin. 4. No abnormal gadolinium enhancement. 5. Temporal lobes and hippocampal formations are normal in appearance. 6. Enhancing RIGHT nasal cavity polypoid lesion extending posteriorly into the nasopharynx. recommend direct visualization
[2024-07-20] MEDS: gadobenate dimeglumine 20 mL vial IV (10:09)
== END 2024-07-20 09:15 | disposition home or self-care (01) ==
LOC: RAD 09:16
PROVIDERS: PCP Family Medicine; Visit Provider Specialist
DX: G40.209 Localization-related (focal) (partial) symptomatic epilepsy and epileptic syndromes with complex partial seizures, not intractable, without status epilepticus (principal); R93.0 Abnormal findings on diagnostic imaging of skull and head, not elsewhere classified; J33.0 Polyp of nasal cavity
CPT/HCPCS: 70553

== ENCOUNTER → 2024-07-22 12:49 | Outpatient (BNVA) | payer MEDICAID, SELFPAY | PROVIDERS: PCP Family Medicine; Visit Provider Student in an Organized Health Care Education/Training Program | DX: M25.512 Pain in left shoulder (principal) | CPT/HCPCS: 73030 ==

== ENCOUNTER 2024-07-28 08:36 | Outpatient (CLI) | payer MEDICAID, SELFPAY ==
--- NOTE | 2024-07-28 08:43 | MR_ITS ---
WS: [id number] MRI LEFT SHOULDER HISTORY: left shoulder posterior dislocation COMPARISON: Radiograph 07/22/2024 TECHNIQUE: Multiplanar sequences of the shoulder joint are submitted. Large amount of acute edema throughout the humeral head. Multiple fracture lines throughout the humeral head. Posterior dislocation of the humeral head with relation to the glenoid. The humeral head is impinging upon the posterior glenoid. At the site of impaction there is a depressed fracture. There is evidence for reverse Bankart lesion. There is a torn posterior labrum with osseous avulsion of the posterior glenoid. Small cyst in the posterior glenoid. Very mild AC joint arthritis. Moderate amount of fluid in the subacromial and subdeltoid bursa. Biceps tendon remains in the bicipital groove. Soft tissue edema is noted in the infraspinatus and subscapularis muscles. Suspect torn coracohumeral ligament. There is increased signal and stretching of the coracohumeral ligament secondary to the partial dislocation. No definite tears involving the rotator cuff muscles. The supraspinatus and subscapularis tendons are being displaced and elongated by the partial dislocation. MR/MR shoulder LT wo con* [id number] IMPRESSION: 1. Acute marrow edema with fractures involving the humeral head and neck. 2. Partial posterior dislocation of the humeral head. Dislocated humeral head impinging upon the glenoid. At the site of glenoid impingement there is a depre ssed fracture in the humeral head which may be impeding successful attempts at reducing the dislocation. 3. Reverse osseous Bankart. Posterior labral avulsion with osseous fragment of the glenoid at the site of impingement upon the humeral head. 4. Moderate amount of edema within the subscapularis and infraspinatus muscles . No tendon tears are identified. Tendons of the supraspinatus and subscapulari s are being displaced and elongated by the dislocation. 5. No biceps tendon dislocation. The biceps tendon becomes closely associated with the glenohumeral joint but does not appear to be entrapped. 6. Coracohumeral ligament edema. Coracohumeral ligament is being elongated and possibly torn.
--- NOTE | 2024-07-28 14:00 | CT_ITS ---
WS: [id number] CT LEFT SHOULDER, NONCONTRAST HISTORY: left shoulder dislocation/fracture Technique: All CT scans at [facility] use at least one of these dose optimization techniques: automated exposure control; mA and/or kV adjustment per patient size (includes targeted exams where dose is matched to clinical indication); or iterative reconstruction. DLP: 489.12 mGy.cm COMPARISON: Radiograph 07/22/2024 Comminuted fracture involving the LEFT humeral head extending into the neck. Fracture extends approximately 3 cm into the proximal humerus. Fracture components are slightly displaced and depressed. Most significant depression of the fracture is along the site of impaction against the posterior glenoid during the dislocation. Humeral head is still partially dislocated posteriorly with respect to the glenoid. There are several small osseous fragments. There is a small cyst in the glenoid. There are small avulsion fractures from the glenoid. Clavicle and AC joint maintain a normal orientation. Mild widening of the glenohumeral joint due to the persistent posterior dislocation. No additional fractures are identified. Noncalcified 4 mm nodules LEFT upper lobe x2. No rib fracture. CT/CT shoulder LT wo con* [id number] IMPRESSION: 1. Comminuted fracture with multiple fracture components involving the humeral head and neck. Fracture extends 3 cm into the proximal humerus. 2. Humeral head continues to be partially posterior dislocated. 3. Posterior dislocation is impinging upon the posterior glenoid which may be preventing successful reduction. 4. Small osseous avulsion fracture from the posterior glenoid at the site of i mpaction. 5. LEFT upper lobe 4 mm pulmonary nodules. Recommend follow-up chest CT in 6 [facility].
== END 2024-07-28 08:37 | disposition home or self-care (01) ==
PROVIDERS: PCP Family Medicine; Visit Provider Family Medicine
DX: S43.005A Unspecified dislocation of left shoulder joint, initial encounter (principal); S42.92XA Fracture of left shoulder girdle, part unspecified, initial encounter for closed fracture; S43.432A Superior glenoid labrum lesion of left shoulder, initial encounter; S43.402A Unspecified sprain of left shoulder joint, initial encounter; X58.XXXA Exposure to other specified factors, initial encounter; R93.7 Abnormal findings on diagnostic imaging of other parts of musculoskeletal system; R91.8 Other nonspecific abnormal finding of lung field; R60.0 Localized edema; M67.814 Other specified disorders of tendon, left shoulder; M24.212 Disorder of ligament, left shoulder; M19.012 Primary osteoarthritis, left shoulder
CPT/HCPCS: 73200; 73221

== ENCOUNTER 2024-07-30 13:46 | Day surgery (SDC) | payer MEDICAID, SELFPAY ==
[2024-07-30] VITALS (22 sets, daily range): BP systolic 108–178; BP diastolic 80–115; PULSE 58–82; RESP 14–24; TEMP 36.1–36.9; O2SAT 93–100; BMI 22.4
--- NOTE | 2024-07-30 13:49 | XR_ITS ---
WS: [id number] Left shoulder, 3 views, 07/30/2024 Clinical Data: pain/dislocation Comparison: Left shoulder, 07/22/2024 Findings: The fracture line of the medial aspect of the left humeral head has not changed. No obvious healing is occurring in this is an old fracture. The AC joint is unremarkable. There are old left sixth and eighth rib posterior lateral fractures. XR/XR shoulder LT min 2V* [id number] Impression: No change in fracture of medial aspect of the left humeral head.
--- NOTE | 2024-07-30 14:33 | ED_ITS ---
Documented by User: Choco Chin DO 08/03/24 14:46 HPI - Extremity Problem 2 General: Chief complaint: Extremity Injury, Upper Stated complaint: left arm dislocated Time Seen by Provider: 07/30/24 13:49 History of Present Illness: 43-year-old male presents to the emergen cy room from the orthopedic clinic Dr. Macario called ahead of time he had had a CT done he has a dislocated left shoulder. It likely dates back to July 10. He has a fracture in the humeral head. He still has some pain associated in his shoulder and has been ongoing pain since July 10. Was noted in follow-up and on advanced imaging. Dr. oHoper called asking that we attempt reduction in the emergency room. Associated symptoms: Deny chest pain, fever(s) or rash Related Data Home Medications ?Medication ?Instructions ?Recorded ?Confirmed ibuprofen 200 mg tablet (Advil) 800 mg PO Q6H PRN Feve r Or Pain 07/30/24 07/31/24 levetiracetam 500 mg tablet 500 mg PO BID 07/30/24 multivit with minerals-folic 1 cap PO DAILY 07/30/24 0 07/31/24 acid-lycopene 0.4 mg-600 mcg capsule (Men's Daily) Previous Rx's ?Medication ?Instructions ?Recorded levetiracetam 750 mg 1,500 mg (2 x 750 mg) PO SUSY LY #60 07/16/24 tablet,extended release 24 hr tabs (Keppra XR) Left Shoulder Immobilizer #1 ea 07/22/24 hydrocodone 10 mg-acetaminophen 1 tab PO Q6H PRN pain 7 days #28 07/31/24 325 mg tablet tabs methocarbamol 500 mg tablet 500 mg PO TID 14 days #42 tabs 07/31/24 Allergies Allergy/AdvReac Type Severity Reaction Status Date / Time oxycodone (From Percocet) Allergy ALGY-Redness Verified 07/31/24 10:11 of Skin Review of Systems 2 Const: Denies: fever(s) or chills Card: Denies: chest pain Resp: Denies: dyspnea GI: Denies: abdominal pain : Denies: dysuria, urinary frequency or urinary urgency Musc: Reports: joint pain; Denies: neck pain or back pain Skin/Breast: Denies: rash PFSH ED 2 PFSH: Medical History Tobacco abuse No pertinent past medical history Social History Smoking and tobacco/nicotine status: current every day tobacco/nicotine user Alcohol intake: never Physical Exam 2 Const: GENERAL APPEARANCE: cooperative ORIENTATION/CONSCIOUSNESS: Yes awake, Yes oriented to person, Yes oriented to place and Yes oriented to time HENMT: COMMON NORMALS: normocephalic, atraumatic and hearing grossly normal bilaterally HEAD & SCALP: normocephalic and atraumatic Resp: COMMON NORMALS: normal respiratory effort, No retractions, No use of accessory muscles and clear to auscultation bilaterally AUSCULTATION: clear to auscultation bilaterally Cardio: COMMON NORMALS: regular rate, regular rhythm and No murmurs present (Cardio) RATE: regular rate RHYTHM: regular rhythm GI: COMMON NORMALS: Soft to palpation and No hepatosplenomegaly present A USCULTATION: Yes normoactive bowel sounds PALPATION: Yes Soft to palpation, No Tenderness to palpation present (GI), No Guarding due to palpation present (GI) and Yes No hepatosplenomegaly present Extremity: NARRATIVE EXTREMITY EXAM: Palpable dislocation of the left shoulder. Neuro: SENSORIUM/ORIENTATION: Yes oriented to person, Yes oriented to place and Yes oriented to time Skin: COMMON NORMALS: no rashes or lesions noted GENERAL SKIN EXAM: no rashes or lesions noted Procedures Orthopedic Joint Reduction Joint #1: Time Out Performed: Yes Side: left Joint Reduction Location: shoulder Analgesia: procedural sedation Shoulder Technique Used (if applicable): traction/counter-traction Post Reduction X-Ray Results: not reduced Patient Tolerated Procedure: well Procedural Sedation Indication: fracture/dislocation reduction ASA Class: I Preparation: monitoring coordinator applied, pulse oximeter, capnometry used, supplemental O2 applied and IV secured Midazolam dose (mg): 6 Interventions: oxygen applied and assist by BVM Additional Comments: 200 mcg of fentanyl Patient tolerated well did receive some ventilatory assist. Unable to achieve enough relaxation and sedation to reduce dislocation. Course 2 Vital Signs: Vital signs: Vital Signs Temperature 98.5 F 07/30/24 18:57 Pulse Rate 72 07/30/24 18:57 Respiratory Rate 16 07/30/24 18:57 Blood Pressure 160/102 05/22/25 18:57 Pulse Oximetry 96 07/30/24 18:57 Oxygen Delivery Me thod Room Air 07/30/24 18:57 Oxygen Flow Rate 2 07/30/24 17:42 MDM - Extremity (Nontraumatic) Medical Decision Making Attempted shoulder reduction. Discussed with Dr. Macario and Ortho he is not available at this time and seen the patient earlier he is handed off the case to Dr. Almendarez who is on-call she will take the patient to the OR for attempted reduction under general anesthesia. Assumed care from Dr. Chin. Patient has been accepted for admission and is just waiting a bed. He has had a dislocated shoulder for quite some time and will require going to the OR. The time I cared for him was unremarkable and patient transferred out of the department. Lab Data 07/30/24 15:14 07/30/24 15:14 Radiology Impressions Shoulder X-Ray 07/30/24 17:22 Impression: Reduction of posterior left shoulder dislocation. Laboratory Results WBC 6.97 10^3/uL (3.29-11.43) 07/30/24 15:14 RBC 4.51 10^6/uL (3.85-5.65) 07/30/24 15:14 Hgb 13.10 g/dL (11.27-16.99) 07/30/24 15:14 Hct 39.8 % (37-53) 07/30/24 15:14 MCV 88.2 fl (82-101) 07/30/24 15:14 MCH 29.0 pg (27-33) 07/30/24 15:14 MCHC 32.9 g/dL (30-55) 07/30/24 15:14 RDW 11.9 % (12.1-15.1) L 07/30/24 15:14 Plt Count 253 10^3/cmm (157-399) 07/30/24 15:14 MPV 9.9 fL (7.4-10.4) 07/30/24 15:14 Neut % (Auto) 60.1 % 07/30/24 15:14 Lymph % (Auto) 25.7 % 07/30/24 15:14 [place] % (Auto) 9.0 % 07/30/24 15:14 Eos % (Auto) 3.3 % 07/30/24 15:14 Baso % (Auto) 1.6 % 07/30/24 15:14 Neut # (Auto) 4.19 10^3/uL (1.8-7.7) 07/30/24 15:14 Lymph # (Auto) 1.8 10^3/uL (0.8-4.8) 07/30/24 15:14 [place]oup # (Auto) 0.6 10^3/uL (0.2-0.9) 07/30/24 15:14 Eos # (Auto) 0.2 10^3/uL (0.0-0.8) 07/30/24 15:14 Baso # (Auto) 0.1 10^3/uL (0.0-0.1) 07/30/24 15:14 Nucleated RBC % (auto) 0 % 07/30/24 15:14 Nucleated RBCs # 0.0 /100WBC 07/30/24 15:14 Sodium 139 mmol/L (136-145) 07/30/24 15:14 Potassium 4.1 mmol/L (3.5-5.1) 07/30/24 15:14 Chloride 104 mmol/L (98-107) 07/30/24 15:14 Carbon Dioxide 26 mmol/L (22-29) 07/30/24 15:14 Anion Gap 13.1 (5-19) 07/30/24 15:14 BUN 21 mg/dL (6-20) H 07/30/24 15:14 Creatinine 1.1 mg/dL (0.7-1.2) 07/30/24 15:14 GFR Calculation 72.4 mL/min (90-130) L 07/30/24 15:14 Glucose 90 mg/dL (65-115) 07/30/24 15:14 Calculated Osmolality 291 mOsm/kg (285-295) 07/30/24 15:14 Calcium 9.1 mg/dL (8.5-10.5) 07/30/24 15:14 Total Bilirubin 0.2 mg/dL (0.15-1.2) 07/30/24 15:14 AST 14 U/L (0-40) 07/30/24 15:14 ALT 8 U/L (0-41) 07/30/24 15:14 Alkaline Phosphatase 77 U/L (40-130) 07/30/24 15:14 Total Protein 7.0 g/dL (6.6-8.7) 07/30/24 15:14 Albumin 4.1 g/dL (3.5-5.2) 07/30/24 15:14 Globulin 2.9 g/dL (1.3-4.6) 07/30/24 15:14 Discharge Plan Discharge Patient Disposition: Placed in Observation Clinical Impression: Reverse Hill-Sachs lesion of humerus Coding Level of Care Code ED Air Traffic Supervisor for Chg Fwd Documented by User: Cecilio Richardson DO 07/31/24 20:25 HPI - Extremity Problem 2 General: Chief complaint: Extremity Injury, Upper Stated complaint: left arm dislocated Time Seen by Provider: 07/30/24 13:49 Related Data Home Medications ?Medication ?Instructions ?Recorded ?Confirmed ibuprofen 200 mg tablet (Advil) 800 mg PO Q6H PRN Feve r Or Pain 07/30/24 07/31/24 levetiracetam 500 mg tablet 500 mg PO BID 07/30/24 multivit with minerals-folic 1 cap PO DAILY 07/30/24 0 07/31/24 acid-lycopene 0.4 mg-600 mcg capsule (Men's Daily) Previous Rx's ?Medication ?Instructions ?Recorded levetiracetam 750 mg 1,500 mg (2 x 750 mg) PO SUSY LY #60 07/16/24 tablet,extended release 24 hr tabs (Keppra XR) Left Shoulder Immobilizer #1 ea 07/22/24 hydrocodone 10 mg-acetaminophen 1 tab PO Q6H PRN pain 7 days #28 07/31/24 325 mg tablet tabs methocarbamol 500 mg tablet 500 mg PO TID 14 days #42 tabs 07/31/24 Allergies Allergy/AdvReac Type Severity Reaction Status Date / Time oxycodone (From Percocet) Allergy ALGY-Redness Verified 07/31/24 10:11 of Skin [facility] ED 2 PFSH: Medical History Tobacco abuse No pertinent past medical history Social History Smoking and tobacco/nicotine status: current every day tobacco/nicotine user Alcohol intake: never Course 2 Vital Signs: Vital signs: Vital Signs Temperature 98.5 F 07/30/24 18:57 Pulse Rate 72 07/30/24 18:57 Respiratory Rate 16 07/30/24 18:57 Blood Pressure 160/102 07/30/24 18:57 Pulse Oximetry 96 07/30/24 18:57 Oxygen Delivery Me thod Room Air 07/30/24 18:57 Oxygen Flow Rate 2 07/30/24 17:42 MDM - Extremity (Nontraumatic) Medical Decision Making Assumed care from Dr. Chin. Patient has been accepted for admission and is just waiting a bed. He has had a dislocated shoulder for quite some time and will require going to the OR. The time I cared for him was unremarkable and patient transferred out of the department. Lab Data 07/30/24 15:14 07/30/24 15:14 Radiology Impressions Shoulder X-Ray 07/30/24 17:22 Impression: Reduction of posterior left shoulder dislocation. Laboratory Results WBC 6.97 10^3/uL (3.29-11.43) 07/30/24 15:14 RBC 4.51 10^6/uL (3.85-5.65) 07/30/24 15:14 Hgb 13.10 g/dL (11.27-16.99) 07/30/24 15:14 Hct 39.8 % (37-53) 07/30/24 15:14 MCV 88.2 fl (82-101) 07/30/24 15:14 MCH 29.0 pg (27-33) 07/30/24 15:14 MCHC 32.9 g/dL (30-55) 07/30/24 15:14 RDW 11.9 % (12.1-15.1) L 07/30/24 15:14 Plt Count 253 10^3/cmm (157-399) 07/30/24 15:14 MPV 9.9 fL (7.4-10.4) 07/30/24 15:14 Neut % (Auto) 60.1 % 07/30/24 15:14 Lymph % (Auto) 25.7 % 07/30/24 15:14 Troup % (Auto) 9.0 % 07/30/24 15:14 Eos % (Auto) 3.3 % 07/30/24 15:14 Baso % (Auto) 1.6 % 07/30/24 15:14 Neut # (Auto) 4.19 10^3/uL (1.8-7.7) 07/30/24 15:14 Lymph # (Auto) 1.8 10^3/uL (0.8-4.8) 07/30/24 15:14 [place]oup # (Auto) 0.6 10^3/uL (0.2-0.9) 07/30/24 15:14 Eos # (Auto) 0.2 10^3/uL (0.0-0.8) 07/30/24 15:14 Baso # (Auto) 0.1 10^3/uL (0.0-0.1) 07/30/24 15:14 Nucleated RBC % (auto) 0 % 07/30/24 15:14 Nucleated RBCs # 0.0 /100WBC 07/30/24 15:14 Sodium 139 mmol/L (136-145) 07/30/24 15:14 Potassium 4.1 mmol/L (3.5-5.1) 07/30/24 15:14 Chloride 104 mmol/L (98-107) 07/30/24 15:14 Carbon Dioxide 26 mmol/L (22-29) 07/30/24 15:14 Anion Gap 13.1 (5-19) 07/30/24 15:14 BUN 21 mg/dL (6-20) H 07/30/24 15:14 Creatinine 1.1 mg/dL (0.7-1.2) 07/30/24 15:14 GFR Calculation 72.4 mL/min (90-130) L 07/30/24 15:14 Glucose 90 mg/dL (65-115) 07/30/24 15:14 Calculated Osmolality 291 mOsm/kg (285-295) 07/30/24 15:14 Calcium 9.1 mg/dL (8.5-10.5) 07/30/24 15:14 Total Bilirubin 0.2 mg/dL (0.15-1.2) 07/30/24 15:14 AST 14 U/L (0-40) 07/30/24 15:14 ALT 8 U/L (0-41) 07/30/24 15:14 Alkaline Phosphatase 77 U/L (40-130) 07/30/24 15:14 Total Protein 7.0 g/dL (6.6-8.7) 07/30/24 15:14 Albumin 4.1 g/dL (3.5-5.2) 07/30/24 15:14 Globulin 2.9 g/dL (1.3-4.6) 07/30/24 15:14 All radiology interpretation(s) finalized by discharge Discharge Plan Discharge Patient Disposition: Placed in Observation Clinical Impression: Reverse Hill-Sachs lesion of humerus Coding Level of Care Code ED Air Traffic Supervisor for Lan Ohara
--- NOTE | 2024-07-30 15:31 | XRR_ITS ---
PROCEDURE INFORMATION: Exam: XR Left Shoulder Exam date and time: 07/30/2024 3:30 PM Age: 43 years old Clinical indication: Injury or trauma; Fall; Blunt trauma (contusions or hematomas); Shoulder; Left; Additional info: Reduction, provider requested axillary only TECHNIQUE: Imaging protocol: Radiologic exam of the left shoulder. Views: 2 or more views. COMPARISON: CR XR shoulder LT min 2V* [id number] 07/30/2024 1:55 PM FINDINGS: Bones/joints: Persistent dislocation of the shoulder post reduction attempt. Soft tissues: Normal. XR/XR shoulder LT 1V [id number] IMPRESSION: Persistent dislocation of the shoulder post reduction attempt.
[2024-07-30] MEDS: midazolam 1 mg/mL INJ 2 mL 6 MG IVP (15:33)
--- NOTE | 2024-07-30 15:33 | PC.PHAR ---
Patient reports using Marijuana recreational . Patient smokes a joint when needed.
[2024-07-30] MEDS: fentaNYL 50 mcg/mL INJ 2mL 200 MCG IVP (15:38)
[2024-07-30 15:59] LABS: Basophils # 0.1 10^3/uL (0.0-0.1); Basophils % 1.6 %; Eosinophils # 0.2 10^3/uL (0.0-0.8); Eosinophils % 3.3 %; Hematocrit 39.8 % (37-53); Lymphocytes # 1.8 10^3/uL (0.8-4.8); Lymphocytes % 25.7 %; Mean Corpuscular HGB Conc 32.9 g/dL (30-55); Mean Corpuscular Volume 88.2 fl (82-101); Mean Platelet Volume 9.9 fL (7.4-10.4); Monocytes # 0.6 10^3/uL (0.2-0.9); Neutrophils # 4.19 10^3/uL (1.8-7.7); Neutrophils % 60.1 %; Nucleated Red Blood Cells % 0 %; Platelet Count 253 10^3/cmm (157-399); Red Blood Count 4.51 10^6/uL (3.85-5.65); Red Cell Distribution Width 11.9 % (12.1-15.1); White Blood Count 6.97 10^3/uL (3.29-11.43)
[2024-07-30 16:12] LABS: Alanine Aminotransferase 8 U/L (0-41); Albumin Level 4.1 g/dL (3.5-5.2); Alkaline Phosphatase 77 U/L (40-130); Anion Gap 13.1 (5-19); Aspartate Amino Transferase 14 U/L (0-40); Blood Urea Nitrogen 21 mg/dL (6-20); Calcium 9.1 mg/dL (8.5-10.5); Carbon Dioxide 26 mmol/L (22-29); Chloride 104 mmol/L (98-107); Creatinine Clr Calc Pharmacy 86.4884; Globulin 2.9 g/dL (1.3-4.6); Glomerular Filtration Rate 72.4 mL/min (90-130); Glucose 90 mg/dL (65-115); Osmolality Calculated 291 mOsm/kg (285-295); Potassium 4.1 mmol/L (3.5-5.1); Sodium 139 mmol/L (136-145); Total Bilirubin 0.2 mg/dL (0.15-1.2)
--- NOTE | 2024-07-30 16:17 | PC.NURSE ---
CONSCIOUS SEDATION: 1527 VITALS - HR 81, 96% 2 L PREOXYGENATION, 150/99 1529 - FENTANYL 100MCG IVP 1530 - VERSED 4 MG IVP 1533 - VERSED 2 MG IVP 1537 - FENTANYL 50 MCG IVP 1538 - FENTANYL 50 MCG IVP XRAY 1540 POST SEDATION: 1543: HR 58, 98% 2 L NC, 134/77 1548: HR 56, 97%, 129/82 1550: HR 57, 97%, 121/79 PATIENT ALERT ON ROOM AIR @ 1600 98%
--- NOTE | 2024-07-30 16:17 | ANES.PREANE2 ---
Pre-Anesthetic Assessment Height/Weight: Height 5 ft 10 in Weight 156 lb Temp Pulse Resp BP Pulse Ox O2 Del Method O2 Flow Rate 98.0 F 60 17 124/82 98 Nasal Cannula 1 07/30/24 13:54 07/30/24 15:45 07/30/24 13:54 07/30/24 15:45 07/30/24 15:45 07/30/24 15:45 07/30/24 15:45 Preop Diagnosis: Dislocated shoulder Operation Date: 07/30/24 16:30 Proposed Procedures p Closed Reduction Shoulder(Left) - Deena Sanford MD Was Beta Yasmani taken within 24 hours: N/A Was Clonidine taken within 24 hours: N/A Social Tobacco and No alcohol Exam alert, oriented x 3, clear to auscultation bilaterally and regular rate & rhythm Airway Submandibular: within normal limits Cervical ROM: within normal limits Mallampati: Class II Comments: Comments: Multiple missing teeth, denies any loose Anesthetic Plan ASA status: 2E Anesthesia: General Other: No prior issues with anesthesia NPO since Patient presents with dislocated shoulder, attempt made by Dr. Sanford manipulate shoulder in the ER without success Labs reviewed 07/30/2024 unacceptable for procedure Prior EKG showing sinus rhythm Plan for GETA for muscle relaxation Medications/Allergies Home Medications ?Medication ?Instructions ?Recorded ?Confirmed ?Last Taken ?Type levetiracetam 750 mg 1,500 mg (2 x 750 mg) PO DAILY #60 07/16/24 07/30/24 07/30/24 09:00 Rx tablet,extended release 24 hr tabs (Keppra XR) Left Shoulder Immobilizer #1 ea 07/22/24 07/30/24 Unknown Rx hydrocodone 5 mg-acetaminophen 325 1 tab PO Q6H PRN pain 7 days #28 07/24/24 07/30/24 07/29/24 Rx mg tablet tabs ibuprofen 200 mg tablet (Advil) 800 mg PO Q6H PRN Fever Or Pain 07/30/24 07/30/24 07/30/24 10:00 History levetiracetam 500 mg tablet 500 mg PO BID 07/30/24 07/30/24 Unknown History multivit with minerals-folic 1 cap PO DAILY 07/30/24 07/30/24 07/29/24 History acid-lycopene 0.4 mg-600 mcg capsule (Men's Daily) Allergies Allergy/AdvReac Type Severity Reaction Status Date / Time acetaminophen (From Percocet) Allergy ALGY-Redness Verified 07/22/24 13:08 of Skin oxycodone (From Percocet) Allergy ALGY-Redness Verified 07/22/24 13:08 of Skin [facility] Anesthesia Medical History Tobacco abuse No pertinent past medical history Social History Smoking and tobacco/nicotine status: current every day tobacco/nicotine user Alcohol intake: never Data Anesthesia 07/30/24 15:14 07/30/24 15:14 Short CBC 07/30/24 Range/Units 15:14 WBC 6.97 (3.29-11.43) 10^3/uL Hgb 13.10 (11.27-16.99) g/dL Hct 39.8 (37-53) % MCV 88.2 (82-101) fl Plt Count 253 (157-399) 10^3/cmm Neut % (Auto) 60.1 % Neut # (Auto) 4.19 (1.8-7.7) 10^3/uL BMP 07/30/24 15:14 Sodium 139 Potassium 4.1 Chloride 104 Carbon Dioxide 26 BUN 21 H Creatinine 1.1 Glucose 90 Calcium 9.1 Liver Function 07/30/24 Range/Units 15:14 Total Bilirubin 0.2 (0.15-1.2) mg/dL AST 14 (0-40) U/L ALT 8 (0-41) U/L Alkaline Phosphatase 77 (40-130) U/L Albumin 4.1 (3.5-5.2) g/dL
--- NOTE | 2024-07-30 16:30 | W.PM.OPSFHP ---
Same Day Surgery H&P Indication for Procedure/HPI DATE OF PROCEDURE: July 30, 2024 CHIEF COMPLAINT/INDICATIONFOR SURGICAL PROCEDURE: Irreducible left shoulder dislocation PREOP DIAGNOSIS: Dislocated shoulder PLANNED PROCEDURE: Operation Date: 07/30/24 16:30 Proposed Procedures p Closed Reduction Shoulder(Left) - Deena Sanford MD This patient was seen in the emergency department today after diagnosis with a reverse Hill-Sachs lesion and persistent dislocation which was irreducible in the emergency department. Medications/Allergies* Home Medications ?Medication ?Instructions ?Recorded ?Confirmed ?Type ibuprofen 200 mg tablet (Advil) 800 mg PO Q6H PRN Fever Or Pain 07/30/24 07/30/24 History levetiracetam 500 mg tablet 500 mg PO BID 07/30/24 07/30/24 History multivit with minerals-folic 1 cap PO DAILY 07/30/24 07/30/24 History acid-lycopene 0.4 mg-600 mcg capsule (Men's Daily) Allergies/Adverse Reactions Allergy/AdvReac Type Severity Reaction Status Date / Time oxycodone (From Percocet) Allergy ALGY-Redness Verified 07/22/24 13:08 of Skin Pertinent History/Comorbid Conditions* History of seizure. Prior remote history 20 years ago. Seizure x 2 at the beginning of July resulting in this dislocation. Medical History (Updated 07/24/24 @ 10:23 by Brad Macario DO) Tobacco abuse No pertinent past medical history Social History Smoking and tobacco/nicotine status: current every day tobacco/nicotine user Alcohol intake: never Pertinent Exam Findings alert, oriented x 3, clear to auscultation bilaterally, regular rate & rhythm, operative site marked and procedure specific exam findings (Internally rotated left shoulder no external rotation or elevation possible) Related Problem List Diagnoses (1) Reverse Hill-Sachs lesion of humerus: (2) Dislocation of left shoulder joint: Qualifiers: Encounter type: initial encounter Qualified Code(s): S43.005A - Unspecified dislocation of left shoulder joint, initial encounter Recommendations Surgery/Procedure today Coding Level of Care Code Acute Code for Chg Fwd Diagnoses Reverse Hill-Sachs lesion of humerus S42.293A Dislocation of left shoulder joint, initial encounter S43.005A Encounter type: initial encounter
[2024-07-30] MEDS: sodium chloride 0.9% 1,000 ML 30 ML IV (16:34)
--- NOTE | 2024-07-30 17:22 | XR_ITS ---
WS: [id number] Left shoulder, C-arm fluoroscopy views, 07/30/2024 Clinical Data: OR PIC, CLOSED REDUCTION Comparison: Left shoulder, 07/22/2024 Findings: Dr. Macario performed closed reduction of the left shoulder posterior dislocation XR/XR shoulder LT min 2V* [id number] Impression: Reduction of posterior left shoulder dislocation.
--- NOTE | 2024-07-30 17:30 | ANES.PROC ---
Anesthesia Procedures Procedure/Date: 07/30/24 Nerve Block ^: Nerve Block 1: Main Anesthesia: general anesthesia Time Out Performed: Yes Consent: requested by attending/covering physician and other (spoke with patients GF who consented for procedure) Nerve block location: interscalene Anesthesia monitors applied: pulse oximetry, EKG, BP cuff and oxygen Nerve block position: supine Anesthetic Used: ropivicaine 0.5% Amount of anesthesia used (mL): 25 Ultrasound used to: recognize landmarks Nerve Stimulator Used?: No Interscalene/Femoral BLK: other needle (pjunk 4inch) Injection: neg aspiration of heme Patient Tolerated Procedure: well Complications: none
--- NOTE | 2024-07-30 17:41 | PM.OP ---
Operative Report Date of procedure: July 30, 2024 Pre-op diagnosis: Subacute left posterior shoulder dislocation with reverse Hill-Sachs lesion, possible fracture, unable to be reduced in the emergency department Post-op diagnosis: Subacute left posterior shoulder dislocation with reverse Hill-Sachs lesion, possible fracture, unable to be reduced in the emergency department Post-op findings: Subacute left posterior shoulder dislocation with humeral head fracture Procedure done: Closed reduction left shoulder under anesthesia Implants: None Specimens removed/disposition: None Pathology: None Surgeon: Deena Sanford MD Pharmacy Student: [facility] operating room technicians Anesthesia: General (Intubated, ASA 2 E) Estimated blood loss (mL): 0 IV fluids (mL): 200 Urine output (mL): 0 (No Gordon) Complications: None Findings: Subacute contracted left posterior shoulder dislocation with reverse Hill-Sachs lesion and humeral head fracture Condition: stable Disposition: PACU (Then return to same-day surgery for discharge to home) Brief History: This 43-year-old gentleman was seen by Dr. Macario in the office for follow-up of left shoulder pain after 2 seizures during a 12-hour period. By history, the patient had seizures approximately 20 years ago and had had none since. Onset of the seizures is July 09, 2024, and the patient was seen in the emergency department on July 10, 2024. Since the time of his visit to the emergency department and also being seen by Dr. Macario, the patient had significant pain. Initial imaging study was read in the emergency department as a fracture deformity of the medial aspect of the humeral head, probably old. Dr. Macario ordered further studies in the form of an MRI and a CT of the shoulder. The studies were obtained on July 28, and the patient was advised to come to the office tomorrow for an emergent visit. Studies were evaluated, and the patient was found to have a comminuted fracture with multiple fracture components involving the humeral head which extended 3 cm into the proximal humerus. The humeral head was partially posteriorly dislocated with a posterior Hill-Sachs lesion. There were also small osseous avulsion fractures in the posterior glenoid at the site of impaction. MRI demonstrated acute marrow edema with partial posterior dislocation of the humeral head in the dislocated humeral head impinging upon the glenoid. Again the reverse Hill-Sachs lesion is described as well as a reverse [place] as there were changes in the glenoid as well. Secondary to these findings, the patient was advised to come to the emergency department today for attempted reduction. The fracture was unable to be reduced in the emergency department and Dr. Macario asked me to take the patient to the operating room for emergent reduction. After discussion with him. Plans were made for closed reduction with no plans for open reduction if I was unable to reduce the fracture. Patient was seen in the preoperative holding area. This plan was discussed in detail with the patient's girlfriend as well as the patient. Consents were signed and questions were answered. Procedure: Patient was brought to the operating theater and placed in a supine position on the operating room table. A surgical pause was performed. Following the surgical pause, we confirmed the site and side of surgery as well as the patient's identity. No preoperative antibiotics were ordered were necessary. Following the surgical pause, fluoroscopy was brought into the operative field. We obtained prereduction images which demonstrated the posterior shoulder dislocation as well as fracture and humeral head. Aggressive manipulation was required secondary to the contracted capsule as the dislocation occurred at least 3 weeks ago. With this aggressive manipulation primarily including internal rotation flexion and even adduction, we were able to dissociate the humeral head from the glenoid, and we were able to stretch capsule to allow us to reduce the shoulder. We were able to confirm, utilizing fluoroscopy, that the dislocation was reduced. Visible with this was the humeral head fracture and this was documented on the intraoperative fluoroscopy. Following reduction, we placed the patient in a slingshot style shoulder immobilizer with additional foam padding next of the patient which was taped onto the sling to provide abduction. The patient was also placed with the arm in slight extension or neutral to help maintain the reduction. Fluoroscopy was used once the patient was transferred to [facility] to confirm that reduction was maintained. Patient was brought to the PACU in a satisfactory condition. Plan was to discharge him home to follow-up with Dr. Macario as he was already scheduled in the morning. There were no complications, no specimens, and the patient tolerated the procedure well. In the PACU, he was given an interscalene block by anesthesia to help control his pain. Related Problem List Diagnoses (1) Reverse Hill-Sachs lesion of humerus: (2) Dislocation of left shoulder joint:
[2024-07-30] MEDS: hyDRALAzine 20 mg/mL INJ 1 mL 10 MG IVP (17:50)
--- NOTE | 2024-07-30 18:06 | SUR.PHASEI ---
1802-received report from sterling Jim patient care in PACU.
[2024-07-30] MEDS: labetalol 5 mg/mL SDV 20mL IVP (18:14)
[2024-07-30] MEDS: labetalol 5 mg/mL SDV 20mL 10 MG IVP (18:30)
== END 2024-07-30 16:12 | disposition home or self-care (01) ==
LOC: ER 16:06 → OR 16:12
PROVIDERS: Family Medicine; Specialist; Emergency Provider General Practice; PCP Family Medicine; Visit Provider Student in an Organized Health Care Education/Training Program
DX: S42.292A Other displaced fracture of upper end of left humerus, initial encounter for closed fracture (principal); S43.005A Unspecified dislocation of left shoulder joint, initial encounter; X58.XXXA Exposure to other specified factors, initial encounter; F17.200 Nicotine dependence, unspecified, uncomplicated
CPT/HCPCS: 23655; 36415; 73020; 73030; 76000; 80053; 85025; J0131; J0360; J1100; J2250; J2405; J2704; J3010; J3490; J7030